=== PATIENT | female | born 1995 | race Caucasian/White ===

== ENCOUNTER 2018-08-22 19:03 | Emergency (ER) | payer BC, OTHER ==
[~2018-08-22] VITALS: Ht 157.5 cm; Wt 59.0 kg
[2018-08-22 19:12] VITALS: Ht 157.5 cm; Wt 59.0 kg
[2018-08-22] MEDS ORDERED: SOD CHLORIDE 0.9% 1,000 ML IV STA (20:52)
[2018-08-22] MEDS ORDERED: ONDANSETRON 4 MG INJ IV STA (20:52)
[2018-08-22] MEDS ORDERED: KETOROLAC 15 MG INJ IV STA (20:52)
--- NOTE | 2018-08-22 20:56 | ERD ---
ER Documentation Chief Complaint Chief Complaint abdominal pain x 1 1/2 weeks, also c/o vomiting HPI This is a 22-year-old female patient who presents the emergency room with complaint of abdominal pain and vomiting x2 weeks. States her last meal was 4 days ago, she is vomiting everything she eats and has intermittent vomiting with bilious emesis. Denies fevers, no diarrhea, last BM today. She is able to keep liquids down. History of appendectomy 3 years ago, no other significant medical history. LMP July 03 patient uses [facility]. ROS All systems reviewed and are negative except as per history of present illness. Medications Home Meds Active Scripts Ondansetron (Ondansetron Odt) 4 Mg Tab.rapdis, 4 MG PO Q6H PRN for NAUSEA AND/OR VOMITING for 7 Days, #14 TAB Prov:QUINTEN WEBSTER [employer] 08/22/18 Allergies Allergies: Coded Allergies: No Known Drug Allergies (Verified Allergy, Unknown, 08/22/18) PMhx/Soc Medical and Surgical Hx: pt denies Medical Hx, pt denies Surgical Hx History of Surgery: Yes Hx Alcohol Use: No Hx Substance Use: No Hx Tobacco Use: No Smoking Status: Never smoker FmHx Family History: No diabetes, No coronary disease, No other Physical Exam Vitals Vital Signs Date Temp Pulse Resp B/P (MAP) Pulse Ox O2 O2 Flow FiO2 Time Delivery Rate 08/22/18 73 18 105/63 99 Room Air 23:14 (77) 08/22/18 98.7 82 18 110/72 98 19:12 (85) Physical Exam Const: No acute distress Head: Atraumatic Eyes: Normal Conjunctiva, PERRL ENT: Normal External Ears, Nose and Mouth. Pharynx pink, no lesions or petechiae Neck: Full range of motion. No meningismus. No lymphadenopathy, no thyromegaly Resp: Clear to auscultation bilaterally Cardio: Regular rate and rhythm, no murmurs Abd: Soft, non tender, non distended. Normal bowel sounds, + Roland sign Skin: No petechiae or rashes Back: No midline or flank tenderness Ext: No cyanosis, or edema Neur: Awake and alert Psych: Normal Mood and Affect Result Diagram: 08/22/18211308/22/182113 Results 24 hrs Laboratory Tests Test 08/22/18 20:03 08/22/18 21:14 08/22/18 21:23 Bedside Urine pH (LAB) 7.0 Bedside Urine Protein (LAB) Negative Bedside Urine Glucose (UA) Negative Bedside Urine Ketones (LAB) Negative Bedside Urine Blood Trace-intact Bedside Urine Nitrite (LAB) Negative Bedside Urine Leukocyte Esterase Negative (L POC Beta HCG, Qualitative NEGATIVE NEGATIVE White Blood Count 7.3 10^3/ul Red Blood Count 4.73 10^6/ul Hemoglobin 13.4 g/dl Hematocrit 41.1 % Mean Corpuscular Volume 86.9 fl Mean Corpuscular Hemoglobin 28.3 pg Mean Corpuscular 32.6 g/dl Hemoglobin Concent Red Cell Distribution Width 11.7 % Platelet Count 315 10^3/UL Mean Platelet Volume 9.3 fl Immature Granulocytes % 0.100 % Neutrophils % 42.9 % Lymphocytes % 46.4 % Monocytes % 7.6 % Eosinophils % 2.2 % Basophils % 0.8 % Nucleated Red Blood Cells % 0.0 /100WBC Immature Granulocytes # 0.010 10^3/ul Neutrophils # 3.1 10^3/ul Lymphocytes # 3.4 10^3/ul Monocytes # 0.6 10^3/ul Eosinophils # 0.2 10^3/ul Basophils # 0.1 10^3/ul Nucleated Red Blood Cells # 0.0 10^3/ul Urine Color STRAW Urine Clarity CLEAR Urine pH 7.0 Urine Specific [place] 1.008 Urine Ketones NEGATIVE mg/dL Urine Nitrite NEGATIVE mg/dL Urine Bilirubin NEGATIVE mg/dL Urine Urobilinogen NEGATIVE mg/dL Urine Leukocyte Esterase NEGATIVE Chase/ul Urine Hemoglobin NEGATIVE mg/dL Urine Glucose NEGATIVE mg/dL Urine Total Protein NEGATIVE mg/dl Sodium Level 143 mmol/L Potassium Level 4.3 mmol/L Chloride Level 105 mmol/L Carbon Dioxide Level 26 mmol/L Anion Gap 12 Blood Urea Nitrogen 7 mg/dl Creatinine 0.53 mg/dl Est Glomerular Filtrat Rate mL/min > 60 mL/min Glucose Level 94 mg/dl Calcium Level 10.1 mg/dl Total Bilirubin 0.6 mg/dl Direct Bilirubin 0.00 mg/dl Indirect Bilirubin 0.6 mg/dl Aspartate Amino Transf (AST/SGOT) 30 IU/L Alanine 23 IU/L Aminotransferase (ALT/SGPT) Alkaline Phosphatase 83 IU/L Total Protein 8.7 g/dl Albumin 4.9 g/dl Globulin 3.80 g/dl Albumin/Globulin Ratio 1.28 Lipase 130 U/L Current Medications Medications Dose Sig/Viky Start Time Status Last (Trade) Ordered Route PRN Stop Time Admin Dose Reason Admin Sodium 1,000 ml @ Q1H STAT 08/22/18 DC 08/22/18 Chloride 1,000 mls/hr IV 20:52 08/22/18 21:32 21:51 Ondansetron 4 mg ONCE STAT 08/22/18 DC 08/22/18 HCl (Zofran IV 20:52 08/22/18 21:33 Inj) 20:54 Ketorolac 15 mg ONCE STAT 08/22/18 DC 08/22/18 Tromethamine IV 20:52 08/22/18 21:32 (Toradol) 20:54 Procedures/MDM Is a 22-year-old female patient presents emergency room with complaint of nausea vomiting and abdominal pain x2 weeks. ED COURSE: The patient was stable throughout ED course. I kept the patient and/or family informed of laboratory and diagnostic imaging results throughout the ED course. DIAGNOSTIC IMAGING: Unremarkable US Read by radiologist. MEDICATIONS GIVEN: Zofran, Toradol, NS Patient tolerated medication well with no adverse reactions. Patient reported improvement in pain. MDM: Reassessment reveals patient feeling improved after Zofran, Toradol, saline. US negative for cholecystitis, cholelithiasis, choledocholithiasis. There is low suspicion for obstruction, infection, ectopic , AAA, pancreatitis, or other life-threatening or serious etiology. The patient presents with abdominal pain without definite explanation found on evaluation today. The patient appears stable for discharge and has been instructed to return immediately if the symptoms worsen in any way, or in 8-12 hours if not improved for re-evaluation. The patient has been instructed to return if the symptoms worsen or change in any way. DISPOSITION: The patient has been discharge home to follow-up with community physician. Departure Diagnosis: Primary Impression: Nausea & vomiting Condition: Stable Patient Instructions: Nausea and Vomiting-Adult Referrals: [facility] Additional Instructions: Thank you very much for allowing us to participate in your care. Your health and safety is our top priority at [facility]. Call your primary care doctor TOMORROW for an appointment during the next 2-4 days and bring all the information and medications prescribed. Have prescriptions filled and follow precisely the directions on the label. If the symptoms get worse and your provider is unavailable, return to the Emergency Department immediately. TAKE ZOFRAN EVERY 6-8 HOURS NEEDED FOR NAUSEA AND BEFORE MEALS. YOU NEED TO FOLLOW-UP WITH YOUR PRIMARY CARE PROVIDER FOR POSSIBLE REFERRAL TO [facility]. QUINTEN WEBSTER NP August 22, 2018 20:56
[2018-08-22] MEDS ORDERED: ONDA4TAB14 PO (23:08)
[2018-08-22 23:14] VITALS: BP 105/63; PULSE 73; RESP 18
== END 2018-08-22 23:15 | disposition home or self-care (01) ==
LOC: FTE 19:03
DX: R11.2 Nausea with vomiting, unspecified (principal)
CPT/HCPCS: 36415; 76705; 80053; 81003; 81025; 83690; 85025; 96361; 96374; 96375; J1885; J2405; J7030; Z7502